=== PATIENT | male | born 1955 | race Caucasian/White ===

== ENCOUNTER 2020-12-27 21:52 | Emergency (ER) | payer OTHER, MEDICARE ==
[~2020-12-27] VITALS: Ht 177.8 cm; Wt 68.0 kg
== END 2020-12-28 03:09 | disposition home or self-care (01) ==
LOC: ER 21:52
DX: S16.1XXA Strain of muscle, fascia and tendon at neck level, initial encounter (principal); J44.9 Chronic obstructive pulmonary disease, unspecified; Z86.73 Personal history of transient ischemic attack (TIA), and cerebral infarction without residual deficits; V89.2XXA Person injured in unspecified motor-vehicle accident, traffic, initial encounter; Y92.410 Unspecified street and highway as the place of occurrence of the external cause
CPT/HCPCS: 70450; 72125; 99284-25; L0160